=== PATIENT | female | born 1985 | race Caucasian/White ===

== ENCOUNTER 2017-07-30 18:21 | Emergency (ER) | payer MEDICAID ==
[~2017-07-30] VITALS: Ht 157.5 cm; Wt 45.8 kg
[2017-07-30 18:30] VITALS: BP 112/71
== END 2017-07-30 19:09 | disposition home or self-care (01) ==
LOC: ER 18:23
DX: B35.1 Tinea unguium (principal); Z88.0 Allergy status to penicillin
CPT/HCPCS: 99281; A4606; Z7610; Z7502

== ENCOUNTER 2019-02-18 12:02 | Emergency (ER) | payer MEDICAID ==
--- NOTE | 2019-02-18 13:04 | NUR ---
CALLED TO TRIAGE,NO ANSWER
--- NOTE | 2019-02-18 13:22 | NUR ---
CALLED TO TRIAGE NOT IN THE WAITING ROOM
--- NOTE | 2019-02-18 14:00 | NUR ---
CALLED TO TRIAGE,NO ANSWER
== END 2019-02-18 14:00 | disposition left against medical advice (07) ==
LOC: ER 12:02
DX: Z53.21 Procedure and treatment not carried out due to patient leaving prior to being seen by health care provider (principal)

== ENCOUNTER 2019-09-17 21:40 | Emergency (ER) | payer MEDICAID ==
[~2019-09-17] VITALS: Ht 152.4 cm; Wt 49.4 kg
[2019-09-17 21:45] VITALS: BP 134/89
[2019-09-17] MEDS ORDERED: ACETAMINOPHEN 325 MG TABLET PO ONE (23:00)
[2019-09-17] MEDS ORDERED: ACETAMINOPHEN ES 500 MG TABLET ONE (23:23)
== END 2019-09-17 23:51 | disposition home or self-care (01) ==
LOC: ER 21:45
DX: R07.89 Other chest pain (principal); Z88.0 Allergy status to penicillin; Z88.1 Allergy status to other antibiotic agents; Z60.2 Problems related to living alone
CPT/HCPCS: 71045-TC

== ENCOUNTER 2024-04-22 14:20 | Emergency (ER) | payer MEDICAID, OTHER ==
[~2024-04-22] VITALS: Ht 162.6 cm; Wt 54.9 kg
[2024-04-22] MEDS ORDERED: LIDOCAINE 1% INJ 50 ML MDV IJ ONE (16:11)
[2024-04-22] MEDS: LIDOCAINE HCL/PF 1% 30 ML VIAL TP ONE (16:22)
[2024-04-22] MEDS ORDERED: IBUP-1953 PO (16:56)
[2024-04-22] MEDS ORDERED: SULF1TAB48 PO (16:56)
[2024-04-22 17:11] VITALS: BP 120/84; TEMP 98; O2SAT 100
== END 2024-04-22 17:11 | disposition home or self-care (01) ==
LOC: ER 14:22
DX: L60.0 Ingrowing nail (principal); Z88.0 Allergy status to penicillin; Z88.1 Allergy status to other antibiotic agents; Z60.2 Problems related to living alone
CPT/HCPCS: 99284; 11730; J3490 ×2